=== PATIENT | male | born 1970 | race Two or more races ===

== ENCOUNTER 2019-08-23 18:10 | Inpatient (IN) | payer OTHER ==
[2019-08-23 20:26] VITALS: BMI 30.9
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
[2019-08-23] MEDS ORDERED: MAGNESIUM HYDROX 2400MG/30ML ORAL SUSPENSION 30 ML CUP PO PRN (22:48)
[2019-08-23] MEDS ORDERED: ONDANSETRON *ODT* 4 MG TABLET SL PRN (22:48)
[2019-08-23] MEDS ORDERED: BISMUTH SUBSALICYLATE 524 MG/30 ML UD PO PRN (22:48)
[2019-08-23] MEDS ORDERED: MAGNESIUM CITRATE 300 ML BOTTLE PO PRN (22:48)
[2019-08-23] MEDS ORDERED: METHOCARBAMOL 500 MG TABLET PO PRN (22:48)
[2019-08-23] MEDS ORDERED: MAG HYDROX/AL HYDROX/SIMETH 30 ML UNIT-DOSE CUP PO PRN (22:48)
[2019-08-23] MEDS ORDERED: ACETAMINOPHEN 325 MG TABLET (FP) PO PRN ×2 (22:48)
[2019-08-23] MEDS ORDERED: MELATONIN 5 MG TABLETS PO PRN (22:48)
[2019-08-23] MEDS ORDERED: MENTHOL/PHENOL 1 EACH UD MM PRN (22:48)
[2019-08-23] MEDS ORDERED: guaiFENesin 200 MG/10 ML 10 ML UNIT-DOSE CUPS PO PRN (22:48)
[2019-08-23] MEDS ORDERED: NICOTINE POLACRILEX 2 MG GUM BUC PRN (22:48)
[2019-08-23] MEDS ORDERED: hydrOXYzine PAMOATE 25 MG CAPSULE (FP) PO PRN (22:48)
[2019-08-23] MEDS ORDERED: chlordiazePOXIDE HCL 25 MG CAPSULE PO PRN (22:48)
[2019-08-23] MEDS ORDERED: DICYCLOMINE HCL 10 MG CAPSULE PO PRN (22:48)
[2019-08-23] MEDS ORDERED: P-EPHED 60MG/TRIPROLIDI 2.5MG TABLET PO PRN (22:48)
[2019-08-23] MEDS ORDERED: IBUPROFEN 400 MG TABLET (FP) PO PRN (22:48)
[2019-08-24] MEDS: chlordiazePOXIDE HCL 25 MG CAPSULE PO SCH ×5 (08:03→22:02)
[2019-08-24] MEDS ORDERED: levETIRAcetam 250 MG TABLET PO SCH (10:00)
[2019-08-24] MEDS: FAMOTIDINE 20 MG TABLET PO SCH ×2 (10:14→22:03)
[2019-08-24] MEDS: PRENATAL VITAMINS W/ FOLIC ACID TABLET (FP) PO SCH (10:14)
[2019-08-24] MEDS: HYDROCORTISONE 1% TOPICAL CREAM 30 GM TUBE TP SCH ×2 (10:15→22:03)
[2019-08-24 10:16] LABS: HEMATOCRIT 42.8 % (35.4-49); HEMOGLOBIN 14.8 GM/dL (11.7-16.9); MCH 32.5 pg (25.7-33.7); MCHC 34.6 g/dl (32.0-35.9); MEAN CELL VOLUME 94.1 fl (80-96); MEAN PLT VOLUME 8.4 fl (7.5-11.1); PLATELET COUNT 176 K/MM3 (134-434); RBC 4.55 M/mm3 (4.00-5.60); RDW 13.3 % (11.9-15.9)
[2019-08-24 10:25] LABS: ALBUMIN 4.2 g/dl (3.4-5.0); BILIRUBIN,TOTAL 1.2 mg/dL (0.2-1); BLOOD UREA NITROGEN 8.8 mg/dL (7-18); CREATININE 0.7 mg/dL (0.55-1.3); POTASSIUM 3.4 mmol/L (3.5-5.1); TOT PROT 7.5 g/dl (6.4-8.2)
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
--- NOTE | 2019-08-24 11:55 | PN ---
S CIWA - CIWA Score Nausea/Vomitin Muscle Tremors: 4-Moderate,w/Arms Extend Anxiety: 2 Agitation: 1-Slight > Activity Paroxysmal Sweats: 1-Minimal Palms Moist Orientation: 0-Oriented Tacttile Disturbances: 0-None Auditory Disturbances: 0-None Visual Disturbances: 1-Very Mild Sensitivity Headache: 2-Mild CIWA-Ar Total Score: 16 BHS Progress Note (SOAP) Subjective: Marcio Bragg states that he vomited after breakfast, now with nausea. He has a headache that is mild. Objective: 08/24/19 11:51 Laboratory Last Values WBC 4.0 K/mm3 (4.0-10.0) 08/24/19 08:30 RBC 4.55 M/mm3 (4.00-5.60) 08/24/19 08:30 Hgb 14.8 GM/dL (11.7-16.9) 08/24/19 08:30 Hct 42.8 % (35.4-49) 08/24/19 08:30 MCV 94.1 fl (80-96) 08/24/19 08:30 MCH 32.5 pg (25.7-33.7) 08/24/19 08:30 MCHC 34.6 g/dl (32.0-35.9) 08/24/19 08:30 RDW 13.3 % (11.9-15.9) 08/24/19 08:30 Plt Count 176 K/MM3 (134-434) 08/24/19 08:30 MPV 8.4 fl (7.5-11.1) 08/24/19 08:30 Sodium 134 mmol/L (136-145) L 08/24/19 08:30 Potassium 3.4 mmol/L (3.5-5.1) L 08/24/19 08:30 Chloride 96 mmol/L (98-107) L 08/24/19 08:30 Carbon Dioxide 29 mmol/L (21-32) 08/24/19 08:30 Anion Gap 9 MMOL/L (8-16) 08/24/19 08:30 BUN 8.8 mg/dL (7-18) 08/24/19 08:30 Creatinine 0.7 mg/dL (0.55-1.3) 08/24/19 08:30 Est GFR (CKD-EPI)AfAm 127.53 08/24/19 08:30 Est GFR (CKD-EPI)NonAf 110.04 08/24/19 08:30 Random Glucose 91 mg/dL (74-106) 08/24/19 08:30 Calcium 9.0 mg/dL (8.5-10.1) 08/24/19 08:30 Total Bilirubin 1.2 mg/dL (0.2-1) H 08/24/19 08:30 AST 95 U/L (15-37) H 08/24/19 08:30 ALT 71 U/L (13-61) H 08/24/19 08:30 Alkaline Phosphatase 68 U/L (45-117) 08/24/19 08:30 Total Protein 7.5 g/dl (6.4-8.2) 08/24/19 08:30 Albumin 4.2 g/dl (3.4-5.0) 08/24/19 08:30 Vital Signs Temperature 96.6 F L 08/24/19 08:33 Pulse Rate 72 08/24/19 08:33 Respiratory Rate 16 08/24/19 08:33 Blood Pressure 165/92 08/24/19 08:33 O2 Sat by Pulse Oximetry (%) Gnl: WD, obese, in mild distress MS: Awake, alert, oriented, follows complex commands Motor: moves all limbs symmetrically Gait: mild unsteadiness Skin: moist, facial rash/red he states chronic 08/24/19 11:52 Assessment: 08/24/19 11:53 1. Alcohol use disorder, in withdrawal 2. HTN, suspect withdrawal related, no prior hx of HTN 08/24/19 11:57 Plan: 1. continue alcohol withdrawal protocol 2. monitor BP, if persistently high may need to start antihypertensive
--- NOTE | 2019-08-24 12:44 | EKG ---
Test Reason : Blood Pressure : / mmHG Vent. Rate : 071 BPM Atrial Rate : 071 BPM P-R Int : 156 ms QRS Dur : 092 ms QT Int : 388 ms P-R-T Axes : 061 045 049 degrees QTc Int : 421 ms NORMAL SINUS RHYTHM NORMAL ECG WHEN COMPARED WITH ECG OF 09-SEP-2008 04:56, PREMATURE VENTRICULAR COMPLEXES ARE NO LONGER PRESENT Confirmed by KAREEM SCHMITT MD ([id number]) on 08/24/2019 12:44:37 PM Referred By: DR TROY Confirmed By:KAREEM SCHMITT MD
[2019-08-24] MEDS ORDERED: POTASSIUM CHLORIDE TABS 20 MEQ TABLET.ER (FP) PO ONE (21:23)
[2019-08-24] MEDS: THIAMINE HCL 100 MG TABLET (FP) PO SCH (22:03)
[2019-08-25] MEDS: chlordiazePOXIDE HCL 25 MG CAPSULE PO SCH ×4 (05:50→22:19)
[2019-08-25] MEDS: PRENATAL VITAMINS W/ FOLIC ACID TABLET (FP) PO SCH (10:37)
[2019-08-25] MEDS: HYDROCORTISONE 1% TOPICAL CREAM 30 GM TUBE TP SCH ×2 (10:38→22:20)
[2019-08-25] MEDS: FAMOTIDINE 20 MG TABLET PO SCH ×2 (10:38→22:19)
--- NOTE | 2019-08-25 11:12 | PN ---
S CIWA - CIWA Score Nausea/Vomitin-No Nausea/No Vomiting Muscle Tremors: 2 Anxiety: 3 Agitation: 0-Normal Activity Paroxysmal Sweats: 3 Orientation: 0-Oriented Tacttile Disturbances: 0-None Auditory Disturbances: 0-None Visual Disturbances: 0-None Headache: 2-Mild CIWA-Ar Total Score: 10 BHS Progress Note (SOAP) Subjective: c/o sweats, headache, and anxiety. Objective: 08/25/19 11:11 Vital Signs 08/25/19 08/25/19 08/25/19 03:30 06:38 08:41 Temperature 97.5 F L 97.7 F Pulse Rate 68 69 Respiratory 18 18 18 Rate Blood Pressure 120/77 121/77 Laboratory Last Values WBC 4.0 K/mm3 (4.0-10.0) 08/24/19 08:30 RBC 4.55 M/mm3 (4.00-5.60) 08/24/19 08:30 Hgb 14.8 GM/dL (11.7-16.9) 08/24/19 08:30 Hct 42.8 % (35.4-49) 08/24/19 08:30 MCV 94.1 fl (80-96) 08/24/19 08:30 MCH 32.5 pg (25.7-33.7) 08/24/19 08:30 MCHC 34.6 g/dl (32.0-35.9) 08/24/19 08:30 RDW 13.3 % (11.9-15.9) 08/24/19 08:30 Plt Count 176 K/MM3 (134-434) 08/24/19 08:30 MPV 8.4 fl (7.5-11.1) 08/24/19 08:30 Sodium 135 mmol/L (136-145) L 08/25/19 08:20 Potassium 4.0 mmol/L (3.5-5.1) 08/25/19 08:20 Chloride 100 mmol/L (98-107) 08/25/19 08:20 Carbon Dioxide 28 mmol/L (21-32) 08/25/19 08:20 Anion Gap 7 MMOL/L (8-16) L 08/25/19 08:20 BUN 8.8 mg/dL (7-18) 08/24/19 08:30 Creatinine 0.7 mg/dL (0.55-1.3) 08/24/19 08:30 Est GFR (CKD-EPI)AfAm 127.53 08/24/19 08:30 Est GFR (CKD-EPI)NonAf 110.04 08/24/19 08:30 Random Glucose 91 mg/dL (74-106) 08/24/19 08:30 Calcium 9.0 mg/dL (8.5-10.1) 08/24/19 08:30 Total Bilirubin 1.2 mg/dL (0.2-1) H 08/24/19 08:30 AST 95 U/L (15-37) H 08/24/19 08:30 ALT 71 U/L (13-61) H 08/24/19 08:30 Alkaline Phosphatase 68 U/L (45-117) 08/24/19 08:30 Total Protein 7.5 g/dl (6.4-8.2) 08/24/19 08:30 Albumin 4.2 g/dl (3.4-5.0) 08/24/19 08:30 RPR Titer Nonreactive (NONREACTIVE) 08/24/19 08:30 Labs noted. Assessment: 08/25/19 11:11 AOX3, in no acute respiratory distress. Full ROM, ambulating in the unit. Withdrawal symptoms. Plan: continue detox.
[2019-08-25] MEDS: THIAMINE HCL 100 MG TABLET (FP) PO SCH (22:18)
[2019-08-26] MEDS ORDERED: chlordiazePOXIDE HCL 10 MG CAPSULE PO PRN
[2019-08-26] MEDS: chlordiazePOXIDE HCL 10 MG CAPSULE PO SCH ×4 (06:04→22:18)
[2019-08-26] MEDS: HYDROCORTISONE 1% TOPICAL CREAM 30 GM TUBE TP SCH ×2 (10:10→22:21)
[2019-08-26] MEDS: PRENATAL VITAMINS W/ FOLIC ACID TABLET (FP) PO SCH (10:12)
[2019-08-26] MEDS: FAMOTIDINE 20 MG TABLET PO SCH ×2 (10:14→22:18)
--- NOTE | 2019-08-26 13:03 | PN ---
S CIWA - CIWA Score Nausea/Vomitin-Mild Nausea/No Vomiting Muscle Tremors: 3 Anxiety: 2 Agitation: 0-Normal Activity Paroxysmal Sweats: 2 Orientation: 0-Oriented Tacttile Disturbances: 0-None Auditory Disturbances: 0-None Visual Disturbances: 0-None Headache: 0-None Present CIWA-Ar Total Score: 8 BHS Progress Note (SOAP) Subjective: 49 years old male admitted on 08/23/19 for alcohol withdrawal sx management treating with librium detox regiment feeling ok today but hard stool and gassy x 2 days abdomen soft round hyperactive gassy bs colace 100 mg po tid senna 2 tab hs fleet enema x 1 Objective: 08/26/19 13:22 Vital Signs Temperature 97.8 F 08/26/19 09:29 Pulse Rate 72 08/26/19 09:29 Respiratory Rate 18 08/26/19 09:29 Blood Pressure 137/93 08/26/19 09:29 O2 Sat by Pulse Oximetry (%) Laboratory Last Values WBC 4.0 K/mm3 (4.0-10.0) 08/24/19 08:30 RBC 4.55 M/mm3 (4.00-5.60) 08/24/19 08:30 Hgb 14.8 GM/dL (11.7-16.9) 08/24/19 08:30 Hct 42.8 % (35.4-49) 08/24/19 08:30 MCV 94.1 fl (80-96) 08/24/19 08:30 MCH 32.5 pg (25.7-33.7) 08/24/19 08:30 MCHC 34.6 g/dl (32.0-35.9) 08/24/19 08:30 RDW 13.3 % (11.9-15.9) 08/24/19 08:30 Plt Count 176 K/MM3 (134-434) 08/24/19 08:30 MPV 8.4 fl (7.5-11.1) 08/24/19 08:30 Sodium 135 mmol/L (136-145) L 08/25/19 08:20 Potassium 4.0 mmol/L (3.5-5.1) 08/25/19 08:20 Chloride 100 mmol/L (98-107) 02/01/20 08:20 Carbon Dioxide 28 mmol/L (21-32) 08/25/19 08:20 Anion Gap 7 MMOL/L (8-16) L 08/25/19 08:20 BUN 8.8 mg/dL (7-18) 08/24/19 08:30 Creatinine 0.7 mg/dL (0.55-1.3) 08/24/19 08:30 Est GFR (CKD-EPI)AfAm 127.53 08/24/19 08:30 Est GFR (CKD-EPI)NonAf 110.04 08/24/19 08:30 Random Glucose 91 mg/dL (74-106) 08/24/19 08:30 Calcium 9.0 mg/dL (8.5-10.1) 08/24/19 08:30 Total Bilirubin 1.2 mg/dL (0.2-1) H 08/24/19 08:30 AST 95 U/L (15-37) H 08/24/19 08:30 ALT 71 U/L (13-61) H 08/24/19 08:30 Alkaline Phosphatase 68 U/L (45-117) 08/24/19 08:30 Total Protein 7.5 g/dl (6.4-8.2) 08/24/19 08:30 Albumin 4.2 g/dl (3.4-5.0) 08/24/19 08:30 RPR Titer Nonreactive (NONREACTIVE) 08/24/19 08:30 lab noted Assessment: 08/26/19 13:23 alcohol withdrawal 08/26/19 13:24 constipation Plan: librium regiment
[2019-08-26] MEDS ORDERED: SODIUM PHOSPHATE/NA BIPHOS 133 ML ENEMA PR ONE (13:15)
[2019-08-26] MEDS: DOCUSATE SODIUM 100 MG CAPSULE (FP) PO SCH ×2 (16:06→22:21)
[2019-08-26] MEDS: SIMETHICONE 80 MG TAB.CHEW (FP) PO SCH ×3 (16:06→22:46)
[2019-08-26] MEDS: THIAMINE HCL 100 MG TABLET (FP) PO SCH (22:18)
[2019-08-26] MEDS: SENNOSIDES 8.6MG TABLET (FP) PO SCH (22:47)
[2019-08-27] MEDS: chlordiazePOXIDE HCL 10 MG CAPSULE PO SCH ×2 (05:42→18:13)
[2019-08-27] MEDS: DOCUSATE SODIUM 100 MG CAPSULE (FP) PO SCH (05:42)
[2019-08-27] MEDS: PRENATAL VITAMINS W/ FOLIC ACID TABLET (FP) PO SCH (10:09)
[2019-08-27] MEDS: FAMOTIDINE 20 MG TABLET PO SCH ×2 (10:09→22:45)
[2019-08-27] MEDS: HYDROCORTISONE 1% TOPICAL CREAM 30 GM TUBE TP SCH ×2 (10:10→22:06)
[2019-08-27] MEDS: SIMETHICONE 80 MG TAB.CHEW (FP) PO SCH (10:11)
--- NOTE | 2019-08-27 10:41 | PN ---
[facility] CIWA - CIWA Score Nausea/Vomitin-No Nausea/No Vomiting Muscle Tremors: 1-None Visible, but [place] Anxiety: 2 Agitation: 0-Normal Activity Paroxysmal Sweats: No Perspiration Orientation: 0-Oriented Tacttile Disturbances: 0-None Auditory Disturbances: 0-None Visual Disturbances: 1-Very Mild Sensitivity Headache: 0-None Present CIWA-Ar Total Score: 4 S Progress Note (SOAP) Subjective: 49 years old male admitted on 08/23/19 for alcohol withdrawal sx management treating with librium detox regiment feeling better today less tremor encourage the patient to attend behavior and psychosocial therapies groups and meetings while in detox Objective: 08/27/19 10:42 Vital Signs Temperature 96.4 F L 08/27/19 08:56 Pulse Rate 76 08/27/19 08:56 Respiratory Rate 18 08/27/19 08:56 Blood Pressure 137/96 08/27/19 08:56 O2 Sat by Pulse Oximetry (%) Laboratory Last Values WBC 4.0 K/mm3 (4.0-10.0) 08/24/19 08:30 RBC 4.55 M/mm3 (4.00-5.60) 08/24/19 08:30 Hgb 14.8 GM/dL (11.7-16.9) 08/24/19 08:30 Hct 42.8 % (35.4-49) 08/24/19 08:30 MCV 94.1 fl (80-96) 08/24/19 08:30 MCH 32.5 pg (25.7-33.7) 08/24/19 08:30 MCHC 34.6 g/dl (32.0-35.9) 08/24/19 08:30 RDW 13.3 % (11.9-15.9) 08/24/19 08:30 Plt Count 176 K/MM3 (134-434) 08/24/19 08:30 MPV 8.4 fl (7.5-11.1) 08/24/19 08:30 Sodium 135 mmol/L (136-145) L 08/25/19 08:20 Potassium 4.0 mmol/L (3.5-5.1) 08/25/19 08:20 Chloride 100 mmol/L (98-107) 08/25/19 08:20 Carbon Dioxide 28 mmol/L (21-32) 08/25/19 08:20 Anion Gap 7 MMOL/L (8-16) L 08/25/19 08:20 BUN 8.8 mg/dL (7-18) 08/24/19 08:30 Creatinine 0.7 mg/dL (0.55-1.3) 08/24/19 08:30 Est GFR (CKD-EPI)AfAm 127.53 08/24/19 08:30 Est GFR (CKD-EPI)NonAf 110.04 08/24/19 08:30 Random Glucose 91 mg/dL (74-106) 08/24/19 08:30 Calcium 9.0 mg/dL (8.5-10.1) 08/24/19 08:30 Total Bilirubin 1.2 mg/dL (0.2-1) H 08/24/19 08:30 AST 95 U/L (15-37) H 08/24/19 08:30 ALT 71 U/L (13-61) H 08/24/19 08:30 Alkaline Phosphatase 68 U/L (45-117) 08/24/19 08:30 Total Protein 7.5 g/dl (6.4-8.2) 08/24/19 08:30 Albumin 4.2 g/dl (3.4-5.0) 08/24/19 08:30 RPR Titer Nonreactive (NONREACTIVE) 08/24/19 08:30 lab noted Assessment: 08/27/19 10:42 alcohol withdrawal Plan: librium regiment
[2019-08-27] MEDS: SENNOSIDES 8.6MG TABLET (FP) PO SCH (22:07)
[2019-08-27] MEDS: THIAMINE HCL 100 MG TABLET (FP) PO SCH (22:07)
[2019-08-27 23:51] LABS: PH,URINE 7.5 (5.0-8.0); URINE APPEARANCE CLEAR; URINE BILIRUBIN NEGATIVE (NEGATIVE); URINE COLOR YELLOW; URINE GLUCOSE (UA) NEGATIVE (NEGATIVE); URINE KETONE NEGATIVE (NEGATIVE); URINE LEUK ESTERASE NEGATIVE (NEGATIVE); URINE NITRITE NEGATIVE (NEGATIVE); URINE PROTEIN NEGATIVE (NEGATIVE); URINE UROBILINOGEN 0.2 mg/dL (0.2-1.0)
[2019-08-28] MEDS ORDERED: chlordiazePOXIDE HCL 10 MG CAPSULE PO ONE (05:00)
--- NOTE | 2019-08-28 09:05 | DS ---
[facility] Detox Discharge Summary Admission Date: 08/23/19 Discharge Date: 08/28/19 - History Present History: Alcohol Dependence Additional Comments: 49 years old male admitted on 08/23/19 for alcohol withdrawal sx management treated with librium detox regiment patient has completed the librium regimen and tolerated well seen by psychiatrist no medical intervention necessary at this time alert oriented x 3 speech clearly coherently ambulating steady gait cardiac s1s2 regular rate rhythm respiratory clear lungs bilaterally on auscultation skin warm and dry Pertinent Past History: patient is doing well while in detox attends groups and meetings for behavior and psychosocial therapies time for discharge: 6minutes - Physical Exam Results Vital Signs: Vital Signs Temperature 97.6 F 08/28/19 06:06 Pulse Rate 58 L 08/28/19 06:06 Respiratory Rate 18 08/28/19 06:06 Blood Pressure 134/70 08/28/19 06:06 O2 Sat by Pulse Oximetry (%) Pertinent Admission Physical Exam Findings: alcohol withdrawal Laboratory Last Values WBC 4.0 K/mm3 (4.0-10.0) 08/24/19 08:30 RBC 4.55 M/mm3 (4.00-5.60) 08/24/19 08:30 Hgb 14.8 GM/dL (11.7-16.9) 08/24/19 08:30 Hct 42.8 % (35.4-49) 08/24/19 08:30 MCV 94.1 fl (80-96) 08/24/19 08:30 MCH 32.5 pg (25.7-33.7) 08/24/19 08:30 MCHC 34.6 g/dl (32.0-35.9) 08/24/19 08:30 RDW 13.3 % (11.9-15.9) 08/24/19 08:30 Plt Count 176 K/MM3 (134-434) 08/24/19 08:30 MPV 8.4 fl (7.5-11.1) 08/24/19 08:30 Sodium 135 mmol/L (136-145) L 08/25/19 08:20 Potassium 4.0 mmol/L (3.5-5.1) 08/25/19 08:20 Chloride 100 mmol/L (98-107) 08/25/19 08:20 Carbon Dioxide 28 mmol/L (21-32) 08/25/19 08:20 Anion Gap 7 MMOL/L (8-16) L 08/25/19 08:20 BUN 8.8 mg/dL (7-18) 08/24/19 08:30 Creatinine 0.7 mg/dL (0.55-1.3) 08/24/19 08:30 Est GFR (CKD-EPI)AfAm 127.53 08/24/19 08:30 Est GFR (CKD-EPI)NonAf 110.04 08/24/19 08:30 Random Glucose 91 mg/dL (74-106) 08/24/19 08:30 Calcium 9.0 mg/dL (8.5-10.1) 08/24/19 08:30 Total Bilirubin 1.2 mg/dL (0.2-1) H 08/24/19 08:30 AST 95 U/L (15-37) H 08/24/19 08:30 ALT 71 U/L (13-61) H 08/24/19 08:30 Alkaline Phosphatase 68 U/L (45-117) 08/24/19 08:30 Total Protein 7.5 g/dl (6.4-8.2) 08/24/19 08:30 Albumin 4.2 g/dl (3.4-5.0) 08/24/19 08:30 Urine Color Yellow 08/27/19 23:27 Urine Appearance Clear 08/27/19 23: Urine pH 7.5 (5.0-8.0) 08/27/19 23:27 Ur Specific [place] 1.005 (1.010-1.035) L 08/27/19 23: Urine Protein Negative (NEGATIVE) 08/27/19 23: Urine Glucose (UA) Negative (NEGATIVE) 08/27/19 23: Urine Ketones Negative (NEGATIVE) 08/27/19 23: Urine Blood Negative (NEGATIVE) 08/27/19 23: Urine Nitrite Negative (NEGATIVE) 08/27/19 23: Urine Bilirubin Negative (NEGATIVE) 08/27/19 23: Urine Urobilinogen 0.2 mg/dL (0.2-1.0) 08/27/19 23: Ur Leukocyte Esterase Negative (NEGATIVE) 08/27/19 23: RPR Titer Nonreactive (NONREACTIVE) 08/24/19 08:30 lab noted - Treatment Hospital Course: Detox Protocol Followed, Detoxed Safely, Responded well, Discharged Condition Good, Rehab Referral Accepted Patient has Accepted a Rehab Referral to: [facility] - Medication Discharge Medications: Ambulatory Orders Famotidine 20 mg PO BID 08/23/19 Folic Acid 1 mg PO DAILY 08/23/19 Hydrocortisone 1% Cream [Hytone 1% Cream -] 1 applic TP BID 08/23/19 Levetiracetam [Keppra] 750 mg PO BID 08/23/19 Multivitamins [Multivit ([facility] Formulary)] 1 tab PO DAILY 08/23/19 Thiamine HCl [Vitamin B1 -] 100 mg PO DAILY 08/23/19 - Diagnosis (1) Alcohol dependence with withdrawal, uncomplicated Status: Acute (2) Nicotine dependence Status: Acute Qualifiers: Nicotine product type: cigarettes Substance use status: in withdrawal Qualified Code(s): F17.213 - Nicotine dependence, cigarettes, with withdrawal (3) GERD (gastroesophageal reflux disease) Status: Chronic Qualifiers: Esophagitis presence: without esophagitis Qualified Code(s): K21.9 - Gastro -esophageal reflux disease without esophagitis (4) Seizure Status: Chronic - AMA Did Patient Leave Against Medical Advice: No CIWA Score - CIWA Score Nausea/Vomitin-No Nausea/No Vomiting Muscle Tremors: 1-None Visible, but [place] Anxiety: 1-Mildly Anxious Agitation: 0-Normal Activity Paroxysmal Sweats: No Perspiration Orientation: 0-Oriented Tacttile Disturbances: 0-None Auditory Disturbances: 0-None Visual Disturbances: 0-None Headache: 0-None Present CIWA-Ar Total Score: 2
[2019-08-28 09:16] VITALS: BP 132/92; PULSE 83; TEMP 97.4
== END 2019-08-28 09:20 | disposition home or self-care (01) | DRG 775 ==
LOC: YASAS 18:10 → Y3N 23:00
PROVIDERS: ADMIT Allergy & Immunology; ATTEND Allergy & Immunology
PROC: HZ2ZZZZ Detoxification Services for Substance Abuse Treatment (ICD-10-PCS; principal; 2019-08-23)
DX: F10.230 Alcohol dependence with withdrawal, uncomplicated (principal); F17.213 Nicotine dependence, cigarettes, with withdrawal; K21.9 Gastro-esophageal reflux disease without esophagitis; I10 Essential (primary) hypertension; G40.909 Epilepsy, unspecified, not intractable, without status epilepticus; K59.00 Constipation, unspecified; L40.9 Psoriasis, unspecified; K29.20 Alcoholic gastritis without bleeding; Z89.022 Acquired absence of left finger(s); Z91.89 Other specified personal risk factors, not elsewhere classified
CPT/HCPCS: 36415; 71046-TC-FY; 80051; 80053; 81003; 85027; 86593; 93005; 93010